=== PATIENT | male | born 1935 | race Caucasian/White ===

== ENCOUNTER 2020-08-04 09:51 | Day surgery (SDC) | payer MEDICARE ==
[~2020-08-04] VITALS: Ht 172.7 cm; Wt 72.2 kg
[2020-08-04 10:41] VITALS: BP 157/81
[2020-08-04] MEDS ORDERED: CEFAZOLIN PMX 1GM/50ML 50 ML ONE (10:49)
[2020-08-04] MEDS ORDERED: CEFAZOLIN PMX 1GM/50ML 50 ML IV ONE (11:00)
[2020-08-04] MEDS ORDERED: LIDOCAINE 1%, 10ML ONE (11:12)
[2020-08-04] MEDS ORDERED: LIDOCAINE 1%, 20ML ONE (11:13)
[2020-08-04] MEDS ORDERED: MIDAZOLAM 1 MG/ML, 5ML ONE (11:29)
[2020-08-04] MEDS ORDERED: FLUMAZENIL 0.1 MG/1 ML, 5ML ONE (11:29)
[2020-08-04] MEDS ORDERED: FENTANYL PF 100 MCG/2ML ONE (11:29)
[2020-08-04] MEDS ORDERED: NALOXONE 1 MG/ML, 2ML ONE (11:29)
[2020-08-04] MEDS ORDERED: PLEASE ENTER ALLERGIES MC SCH (12:30)
== END 2020-08-04 14:30 | disposition home or self-care (01) ==
LOC: OUT 09:51
PROVIDERS: ATTEND Internal Medicine
DX: C67.4 Malignant neoplasm of posterior wall of bladder (principal); E11.9 Type 2 diabetes mellitus without complications; E78.5 Hyperlipidemia, unspecified; N40.0 Benign prostatic hyperplasia without lower urinary tract symptoms; E83.42 Hypomagnesemia; D64.9 Anemia, unspecified; Z79.84 Long term (current) use of oral hypoglycemic drugs; Z79.899 Other long term (current) drug therapy; Z85.46 Personal history of malignant neoplasm of prostate; Z85.828 Personal history of other malignant neoplasm of skin; Z87.891 Personal history of nicotine dependence; Z90.79 Acquired absence of other genital organ(s); Z98.890 Other specified postprocedural states
CPT/HCPCS: 36561; 76937; 77001; 99156; 99157; C1788; C1894; J1642; J2250; J3010; J2310